=== PATIENT | male | born 1985 | race Caucasian/White ===

== ENCOUNTER 2020-02-09 09:46 | Outpatient (REF) | payer BC, SELFPAY ==
[2020-02-13 16:44] LABS: COVID-19 RT-PCR Result Not Detected
== END 2020-02-09 10:06 ==
LOC: NCHCN 09:46
PROVIDERS: PCP Internal Medicine; Visit Provider Internal Medicine
DX: Z11.59 Encounter for screening for other viral diseases (principal)
CPT/HCPCS: U0003

== ENCOUNTER 2020-03-02 12:40 | Outpatient (REF) | payer BC, SELFPAY ==
[2020-03-06 03:12] LABS: SARS-CoV-2 RNA Undetected (Undetected); SARS-CoV-2 Specimen Source Nasal
== END 2020-03-02 13:00 ==
LOC: NCHCN 12:40
PROVIDERS: PCP Internal Medicine; Visit Provider Internal Medicine
DX: Z20.828 Contact with and (suspected) exposure to other viral communicable diseases (principal)
CPT/HCPCS: U0003

== ENCOUNTER 2020-03-29 15:23 | Outpatient (REF) | payer BC, SELFPAY ==
[2020-04-02 17:07] LABS: COVID-19 RT-PCR Result NEGATIVE (Negative)
== END 2020-03-29 15:43 ==
LOC: NCHCN 15:23
PROVIDERS: PCP Internal Medicine; Visit Provider Internal Medicine
DX: Z20.828 Contact with and (suspected) exposure to other viral communicable diseases (principal)
CPT/HCPCS: U0003

== ENCOUNTER → 2022-12-20 14:10 | Outpatient (CLI) | payer BC, SELFPAY ==
--- NOTE | 2022-12-20 14:33 | DI.RAD_ITS ---
Exam(s) XR NASAL BONES EXAM: XR NASAL BONES CLINICAL HISTORY: fall, injury r/o fx.. TECHNIQUE: 2D digital imaging was performed. COMPARISON: No exams were available for comparison FINDINGS: 3 views No evidence of depressed nasal bone fracture. Very subtle osseous irregularity seen in the left nasa l bone which may be a subtle fracture at this level. IMPRESSION: Subtle finding as above. DATA REPOSITORY: RADIATION DOSE DELIVERED:
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
== END ==
LOC: LBN 14:15 → DI 14:17
PROVIDERS: PCP Internal Medicine; Visit Provider Physician Assistant
DX: W19.XXXA Unspecified fall, initial encounter (principal); M79.641 Pain in right hand
CPT/HCPCS: 70160; 73130

== ENCOUNTER 2022-12-23 10:22 | Outpatient (CLI) | payer BC, SELFPAY ==
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
== END 2022-12-23 10:23 | disposition home or self-care (01) ==
LOC: DIORS 10:22
PROVIDERS: Visit Provider Physician Assistant
DX: M79.662 Pain in left lower leg (principal); V18.0XXA Pedal cycle driver injured in noncollision transport accident in nontraffic accident, initial encounter
CPT/HCPCS: 73590

== ENCOUNTER → 2023-01-16 00:14 | Outpatient (CLI) | payer BC, SELFPAY ==
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
== END ==
PROVIDERS: Visit Provider Student in an Organized Health Care Education/Training Program
DX: S80.12XA Contusion of left lower leg, initial encounter (principal); X58.XXXA Exposure to other specified factors, initial encounter; R22.42 Localized swelling, mass and lump, left lower limb
CPT/HCPCS: 73718